=== PATIENT | female | born 1965 | race Hispanic/Latino ===

== ENCOUNTER 2017-03-29 03:19 | Day surgery (SDC) | payer SELFPAY ==
[~2017-03-29] VITALS: Ht 165.1 cm; Wt 110.0 kg
[~2017-03-29 03:19] MED LIST: ATENOLOL25 MG PO; DILAUDID2 MG PO; ENALAPRIL MALEA20 MG PO; GLUCOPHAGE500 MG PO; LEVOTHYROXINE125 MCG PO; PRILOSEC40 MG PO
[2017-03-29 03:51] LABS: HEMATOCRIT 39.3 % (36.0-46.0); MCH 25.9 PG (29.0-34.0); MCHC 31.3 G/DL (30.0-36.0); MCV 82.7 FL (83-99); MEAN PLAT.VOLUME 10.4 uM^3 (9.5-12.4); PLATELET COUNT 264 K/uL (156-360); RBC DIS.WIDTH-CV 13.8 % (11.8-14.6); RBC DIS.WIDTH-SD 41.4 % (39-53); RED BLOOD COUNT 4.75 M/uL (3.80-5.20); WHITE BLOOD COUNT 7.5 K/uL (4.1-10.2)
[2017-03-29 04:03] LABS: CHLORIDE 104 mEq/L (99-109); POTASSIUM 3.5 mEq/L (3.7-5.4); SODIUM 138 mEq/L (136-147)
[2017-03-29 04:05] LABS: GLUCOSE 109 mg/dL (70-99)
[2017-03-29 04:07] LABS: ANION GAP 9 MEQ/L (2-14); TOTAL BILIRUBIN 0.3 mg/dL (0.0-1.0)
[2017-03-29 04:09] LABS: ALKALINE PHOSPHATASE 106 IU/L (3-129); GFR ESTIMATE (CALCULATED) > 59 mL/min/
[2017-03-29 04:10] LABS: UREA NITROGEN (BUN) 11 mg/dL (9-23)
[2017-03-29 04:12] LABS: LIPASE 50 U/L (1.0-51.0)
[2017-03-29 04:13] LABS: TROP-I INTERPRETATION NEGATIVE; TROPONIN-I < 0.01 ng/mL (0.0-0.30)
[2017-03-29 04:54] LABS: ADD MIUA? YES; BILIRUBIN NEGATIVE; BLOOD MODERATE; COLOR STRAW ((YELLOW)); GLUCOSE (STRIP) NEGATIVE; KETONES NEGATIVE; LEUKOCYTES NEGATIVE; NITRITE NEGATIVE; PROTEIN (STRIP) NEGATIVE; SPECIFIC GRAVITY 1.009 (1.000-1.030); UROBILINOGEN 0.2 MG/DL (0.2-1.0)
[2017-03-29 05:01] LABS: BACTERIA NONE SEEN /HPF; EPITHELIAL CELLS 1+ /HPF; MUCUS NONE SEEN /LPF; RED BLOOD CELLS 0-5 /HPF (0-5); UCUL ADDED? NO; WHITE BLOOD CELLS 0-5 /HPF (0-5)
[2017-03-29 08:37] VITALS: BP 178/82
[2017-03-29 14:31] VITALS: BP 165/94
[2017-03-29 16:10] VITALS: BP 161/70
== END 2017-03-29 15:04 | disposition home or self-care (01) ==
LOC: EME 03:19 → SDC 06:58 → EME 06:58 → SDC 15:04
PROVIDERS: Physician Assistant
PROC: 0FT44ZZ Resection of Gallbladder, Percutaneous Endoscopic Approach (ICD-10-PCS; principal; 2017-03-29)
DX: K80.10 Calculus of gallbladder with chronic cholecystitis without obstruction (principal); I10 Essential (primary) hypertension; E11.9 Type 2 diabetes mellitus without complications; Z79.84 Long term (current) use of oral hypoglycemic drugs
CPT/HCPCS: 71020; 74176; 80053; 81003; 83690; 84484; 85027; 88304; 93005; 99281; 99284; J0295; J0330; J1100; J1170; J1885; J2250; J2270; J2405; J3010; J7030; J7050